=== PATIENT | female | born 1970 | race Caucasian/White ===

== ENCOUNTER 2016-05-15 12:35 | Emergency (ER) | payer OTHER ==
[~2016-05-15] VITALS: Ht 167.6 cm; Wt 70.4 kg
[2016-05-15] MEDS ORDERED: SODIUM CHLORIDE 0.9% 1,000 ML IV ONE (13:25)
[2016-05-15] MEDS ORDERED: ONDANSETRON 2MG/ML, 2ML IVPush ONE (13:30)
[2016-05-15] MEDS ORDERED: SODIUM CHLORIDE FLUSH 10ML SYR IVF ONE (13:30)
[2016-05-15] MEDS ORDERED: SODIUM CHLORIDE 0.9% 1,000ML IVBOLUS ONE ×2 (13:30→15:00)
[2016-05-15] MEDS ORDERED: KETOROLAC 30 MG/1 ML IVPush ONE (13:30)
[2016-05-15] MEDS ORDERED: ONDANSETRON 2MG/ML, 2ML ONE (13:54)
[2016-05-15] MEDS ORDERED: KETOROLAC 30 MG/1 ML ONE (13:54)
[2016-05-15 14:00] LABS: HEMOGLOBIN 15.3 g/dL (11.7-16.4)
[2016-05-15] MEDS ORDERED: GABA300T3 PO (14:08)
[2016-05-15] MEDS ORDERED: CITA40TA12 PO (14:08)
[2016-05-15] MEDS ORDERED: LEVO175T2 PO (14:08)
[2016-05-15] MEDS ORDERED: ALPR-475 PO (14:08)
[2016-05-15] MEDS ORDERED: OXYC-302 PO (14:08)
[2016-05-15 14:13] LABS: ASPARTATE AMINO TRANSFERASE 28 U/L (15-37); BLOOD UREA NITROGEN 14 mg/dL (7-18)
[2016-05-15 14:18] LABS: IS PT STATUS REG ER OR PRE ER? YES
[2016-05-15 15:40] VITALS: BP 142/89
== END 2016-05-15 15:42 | disposition home or self-care (01) ==
LOC: ED 13:15
DX: J01.00 Acute maxillary sinusitis, unspecified (principal); J01.10 Acute frontal sinusitis, unspecified; R07.89 Other chest pain
CPT/HCPCS: 36415; 70450; 80053; 83605; 84484; 85025; 93005; 96361; 96374; 96375; 99285; J1885; J2405; J7030

== ENCOUNTER → 2016-06-10 | Outpatient (CLI) | payer OTHER ==
[~2016-06-10] MED LIST: ALPR-475 PO; CITA40TA12 PO; FENTANYL PF 100 MCG/2ML ONE; FLUMAZENIL 0.1 MG/1 ML, 5ML ONE; GABA300T3 PO; LEVO175T2 PO; MIDAZOLAM 1 MG/ML, 5ML ONE; NALOXONE 1 MG/ML, 2ML ONE; OXYC-302 PO
== END | disposition home or self-care (01) ==
LOC: RAD 10:54
PROVIDERS: ATTEND Internal Medicine Hematology & Oncology
DX: M25.512 Pain in left shoulder (principal)
CPT/HCPCS: 73221; J2250; J3010; 99156; J2310

== ENCOUNTER → 2016-12-19 | Outpatient (CLI) | payer OTHER ==
[~2016-12-19] MED LIST changes: -FENTANYL PF 100 MCG/2ML ONE; -FLUMAZENIL 0.1 MG/1 ML, 5ML ONE; -MIDAZOLAM 1 MG/ML, 5ML ONE; -NALOXONE 1 MG/ML, 2ML ONE
== END | disposition home or self-care (01) ==
LOC: CFH 12:18
PROVIDERS: ATTEND Obstetrics & Gynecology
DX: Z12.31 Encounter for screening mammogram for malignant neoplasm of breast (principal)
CPT/HCPCS: G0202

== ENCOUNTER → 2017-08-05 | Outpatient (CLI) | payer OTHER ==
[2017-08-05 13:23] LABS: FREE T4 (FREE THYROXINE) 0.83 ng/dL (0.76-1.46); THYROID STIMULATING HORMONE 2.97 mIU/L (0.358-3.740)
== END | disposition home or self-care (01) ==
LOC: LAB 12:39
PROVIDERS: ATTEND Family Medicine
DX: E89.0 Postprocedural hypothyroidism (principal); I10 Essential (primary) hypertension; E03.9 Hypothyroidism, unspecified
CPT/HCPCS: 36415; 84439; 84443; 84481

== ENCOUNTER → 2017-10-17 | Outpatient (CLI) | payer OTHER ==
[~2017-10-17] MED LIST changes: +FENTANYL PF 100 MCG/2ML ONE; +FLUMAZENIL 0.1 MG/1 ML, 5ML ONE; +LEVO200T5 PO; +LISI-167 PO; +MIDAZOLAM 1 MG/ML, 5ML ONE; +NALOXONE 1 MG/ML, 2ML ONE; +OXYC-306 PO
== END | disposition home or self-care (01) ==
LOC: RAD 14:06
PROVIDERS: ATTEND Neurological Surgery
DX: M43.22 Fusion of spine, cervical region (principal); M25.78 Osteophyte, vertebrae
CPT/HCPCS: 72050; 72110; 72141; 72148; 99156; 99157; J2250; J3010; J2310

== ENCOUNTER → 2018-01-02 | Outpatient (CLI) | payer OTHER ==
[~2018-01-02] MED LIST changes: -FENTANYL PF 100 MCG/2ML ONE; -FLUMAZENIL 0.1 MG/1 ML, 5ML ONE; -MIDAZOLAM 1 MG/ML, 5ML ONE; -NALOXONE 1 MG/ML, 2ML ONE
[2018-01-02 11:21] LABS: BASOPHILS # (AUTO) 0.02 x10^3/uL (0-0.1); BASOPHILS % (AUTO) 0 % (0-1); EOSINOPHILS # (AUTO) 0.03 x10^3/uL (0-0.4); EOSINOPHILS % (AUTO) 1 % (1-7); LYMPHOCYTES % (AUTO) 34 % (22-44); MD NO; MEAN CORPUSCULAR HEMOGLOBIN 34.2 pg (27.0-34.8); MEAN CORPUSCULAR HGB CONC 33.5 g/dL (32.4-35.8); MEAN CORPUSCULAR VOLUME 102.2 fL (80-100); MEAN PLATELET VOLUME 8.6 fL (7.4-10.4); MONOCYTES # (AUTO) 0.66 x10^3/uL (0.2-0.8); MONOCYTES % (AUTO) 10 % (2-9); NEUTROPHILS # (AUTO) 3.53 x10^3/uL (1.8-6.8); NEUTROPHILS % (AUTO) 55 % (42-75); PLATELET COUNT 260 x10^3/uL (130-400); RED BLOOD COUNT 4.23 x10^6/uL (3.82-5.3); RED CELL DISTRIBUTION WIDTH 13.7 % (9.6-15.2)
[2018-01-02 11:33] LABS: ALBUMIN 4.5 g/dL (3.4-5.0); ANION GAP 6 mmol/L (5-15); CALCIUM 8.7 mg/dL (8.5-10.1); CHLORIDE 105 mmol/L (98-107)
[2018-01-02 11:37] LABS: ALANINE AMINOTRANSFERASE 26 U/L (12-78); ALKALINE PHOSPHATASE 94 U/L (45-117); BILIRUBIN,TOTAL 0.5 mg/dL (0.2-1.0); CREATININE 0.94 mg/dL (0.55-1.02); TOTAL PROTEIN 8.4 g/dL (6.4-8.2)
== END | disposition home or self-care (01) ==
LOC: LAB 11:07
PROVIDERS: ATTEND Nurse Practitioner Family
DX: I10 Essential (primary) hypertension (principal); M32.10 Systemic lupus erythematosus, organ or system involvement unspecified; M79.89 Other specified soft tissue disorders; R20.2 Paresthesia of skin
CPT/HCPCS: 36415; 80053; 85025

== ENCOUNTER 2018-02-06 06:11 | Day surgery (SDC) | payer OTHER ==
[2018-02-05 14:30] LABS: BASOPHILS # (AUTO) 0.03 x10^3/uL (0-0.1); BASOPHILS % (AUTO) 0 % (0-1); EOSINOPHILS # (AUTO) 0.06 x10^3/uL (0-0.4); EOSINOPHILS % (AUTO) 1 % (1-7); LYMPHOCYTES # (AUTO) 2.32 x10^3/uL (1-3.4); LYMPHOCYTES % (AUTO) 24 % (22-44); MD NO; MEAN CORPUSCULAR HEMOGLOBIN 35.2 pg (27.0-34.8); MEAN CORPUSCULAR HGB CONC 34.6 g/dL (32.4-35.8); MEAN CORPUSCULAR VOLUME 101.8 fL (80-100); MEAN PLATELET VOLUME 8.9 fL (7.4-10.4); MONOCYTES # (AUTO) 0.64 x10^3/uL (0.2-0.8); MONOCYTES % (AUTO) 7 % (2-9); NEUTROPHILS # (AUTO) 6.81 x10^3/uL (1.8-6.8); NEUTROPHILS % (AUTO) 69 % (42-75); PLATELET COUNT 220 x10^3/uL (130-400); RED BLOOD COUNT 3.79 x10^6/uL (3.82-5.3); RED CELL DISTRIBUTION WIDTH 12.7 % (9.6-15.2)
[2018-02-05 14:32] LABS: MICROSCOPIC NOT IND
[2018-02-05 14:38] LABS: CULTURE INDICATED? NO
[2018-02-05 14:43] LABS: ALANINE AMINOTRANSFERASE 25 U/L (12-78); ALBUMIN 4.4 g/dL (3.4-5.0); ANION GAP 8 mmol/L (5-15); CALCIUM 8.8 mg/dL (8.5-10.1); CHLORIDE 108 mmol/L (98-107); CREATININE 1.01 mg/dL (0.55-1.02)
[2018-02-05 14:45] LABS: ALKALINE PHOSPHATASE 88 U/L (45-117); BILIRUBIN,TOTAL 0.2 mg/dL (0.2-1.0); TOTAL PROTEIN 8.1 g/dL (6.4-8.2)
[~2018-02-06] VITALS: Ht 167.6 cm; Wt 68.8 kg
[~2018-02-06 06:11] MED LIST changes: +PREN1TAB60 PO
[2018-02-06] MEDS ORDERED: LACTATED RINGERS 1,000 ML IV SCH (06:32)
[2018-02-06 06:34] VITALS: BP 119/80
[2018-02-06] MEDS ORDERED: BUPIVACAINE 0.25% ONE (07:17)
[2018-02-06] MEDS ORDERED: EPINEPHRINE 1 MG/ML, 1ML ONE (07:18)
[2018-02-06] MEDS ORDERED: FENTANYL PF 100 MCG/2ML ONE (07:50)
[2018-02-06] MEDS ORDERED: MIDAZOLAM 1 MG/ML, 2ML ONE (07:50)
[2018-02-06] MEDS ORDERED: FENTANYL PF 100 MCG/2ML IV PRN (08:00)
[2018-02-06] MEDS ORDERED: DIPHENHYDRAMINE 50 MG/ML, 1ML IVPush PRN (08:00)
[2018-02-06] MEDS ORDERED: LABETALOL 5MG/ML, 20ML IV PRN (08:00)
[2018-02-06] MEDS ORDERED: HALOPERIDOL 5 MG/ML IV PRN (08:00)
[2018-02-06] MEDS ORDERED: HYDROcodone/APAP 7.5-325MG/15ML UDC PO PRN (08:00)
[2018-02-06] MEDS ORDERED: hydrALAzine 20 MG/ML, 1ML IV PRN (08:00)
[2018-02-06] MEDS ORDERED: HYDROmorphone 2 MG/ML, 1ML IVPush PRN (08:00)
[2018-02-06] MEDS ORDERED: MORPHINE SULFATE 4 MG/ML, 1ML ONE ×2 (09:17→09:32)
[2018-02-06] MEDS: MORPHINE SULFATE 4 MG/ML, 1ML IVPush PRN ×3 (09:20→09:35)
[2018-02-06] MEDS: DIAZEPAM 5 MG/ML, 2ML IVPush PRN ×3 (09:30→09:40)
[2018-02-06] MEDS ORDERED: PROMETHAZINE 25 MG/ML, 1ML ONE (09:37)
[2018-02-06] MEDS: PROMETHAZINE 25 MG/ML, 1ML IV PRN ×2 (09:40→09:50)
[2018-02-06] MEDS ORDERED: OXYcodone 5 MG/5 ML ORAL.SOL UDC PO PRN (10:00)
[2018-02-06] MEDS ORDERED: KETOROLAC 30 MG/1 ML ONE (11:17)
[2018-02-06] MEDS ORDERED: ONDANSETRON 2MG/ML, 2ML ONE (11:17)
[2018-02-06] MEDS ORDERED: PROPOFOL 10 MG/ML, 20ML ONE (11:17)
[2018-02-06] MEDS ORDERED: DEXAMETHASONE 4 MG/ML, 1ML ONE (11:17)
== END 2018-02-06 11:00 | disposition home or self-care (01) ==
LOC: OUT 06:11
PROVIDERS: ATTEND Obstetrics & Gynecology
DX: N92.0 Excessive and frequent menstruation with regular cycle (principal); I10 Essential (primary) hypertension; F41.9 Anxiety disorder, unspecified; G62.9 Polyneuropathy, unspecified; Z88.5 Allergy status to narcotic agent; Z88.8 Allergy status to other drugs, medicaments and biological substances; G89.29 Other chronic pain; Z90.49 Acquired absence of other specified parts of digestive tract; E89.0 Postprocedural hypothyroidism; Z98.890 Other specified postprocedural states; Z79.899 Other long term (current) drug therapy; Z83.3 Family history of diabetes mellitus; Z82.49 Family history of ischemic heart disease and other diseases of the circulatory system; Z83.49 Family history of other endocrine, nutritional and metabolic diseases; I69.351 Hemiplegia and hemiparesis following cerebral infarction affecting right dominant side; I69.354 Hemiplegia and hemiparesis following cerebral infarction affecting left non-dominant side
CPT/HCPCS: 36415; 58563; 80053; 81003; 84702; 85025; J1100; J1885; J2250; J2405; J2550; J2704; J3010; J3360; J3490; J7120; J0171

== ENCOUNTER → 2018-03-18 | Outpatient (CLI) | payer OTHER ==
[2018-03-19 08:53] LABS: MEAN CORPUSCULAR HEMOGLOBIN 34.4 pg (27.0-34.8); MEAN CORPUSCULAR HGB CONC 33.7 g/dL (32.4-35.8); MEAN CORPUSCULAR VOLUME 101.8 fL (80-100); MEAN PLATELET VOLUME 8.6 fL (7.4-10.4); PLATELET COUNT 241 x10^3/uL (130-400); RED BLOOD COUNT 4.28 x10^6/uL (3.82-5.3); RED CELL DISTRIBUTION WIDTH 11.8 % (9.6-15.2)
== END | disposition home or self-care (01) ==
LOC: LAB 07:05
PROVIDERS: ATTEND Obstetrics & Gynecology
DX: Z13.0 Encounter for screening for diseases of the blood and blood-forming organs and certain disorders involving the immune mechanism (principal); Z13.220 Encounter for screening for lipoid disorders; Z13.29 Encounter for screening for other suspected endocrine disorder; Z13.9 Encounter for screening, unspecified; N95.1 Menopausal and female climacteric states
CPT/HCPCS: 36415; 82670; 83001; 84443; 85027

== ENCOUNTER → 2018-06-12 | Outpatient (CLI) | payer OTHER ==
[2018-06-12 10:13] LABS: ALANINE AMINOTRANSFERASE 24 U/L (12-78); ANION GAP 7 mmol/L (5-15); CALCIUM 8.8 mg/dL (8.5-10.1); CHLORIDE 105 mmol/L (98-107); CREATININE 0.87 mg/dL (0.55-1.02)
[2018-06-12 10:24] LABS: ALKALINE PHOSPHATASE 105 U/L (45-117); BILIRUBIN,TOTAL 0.2 mg/dL (0.2-1.0); FREE T4 (FREE THYROXINE) 1.29 ng/dL (0.76-1.46); THYROID STIMULATING HORMONE 0.329 mIU/L (0.358-3.740); TOTAL PROTEIN 7.9 g/dL (6.4-8.2)
== END | disposition home or self-care (01) ==
LOC: LAB 09:48
PROVIDERS: ATTEND Internal Medicine Endocrinology, Diabetes & Metabolism
DX: R53.83 Other fatigue (principal); E89.0 Postprocedural hypothyroidism
CPT/HCPCS: 36415; 80053; 82306; 83970; 84439; 84443; 84481

== ENCOUNTER 2018-08-04 13:49 | Inpatient (IN) | payer OTHER ==
[~2018-08-04] VITALS: Ht 167.6 cm; Wt 72.5 kg
[2018-08-04] MEDS ORDERED: SODIUM CHLORIDE FLUSH 10ML SYR IVF ONE (14:30)
[2018-08-04] MEDS ORDERED: DIAZEPAM 5 MG/ML, 2ML IV ONE (14:30)
--- NOTE | 2018-08-04 14:50 | NUR ---
PT C/O LOW BACK PAIN FOR FOUR DAYS AFTER LIFTING A PT. PT HAS HAD PREVIOUS BACK SURGERY BUT PAIN IS IN DIFFERENT LOCATION THAT SHE USUALLY EXPERIENCES IT.
--- NOTE | 2018-08-04 15:32 | NUR ---
MEDICATED PER ORDERS. PT CONCERNED NO IMAGING HAS BEEN ORDERED. MD AT BEDSIDE EXAMINING PT
[2018-08-04] MEDS ORDERED: HYDROmorphone 2 MG/ML, 1ML ONE (15:35)
[2018-08-04] MEDS ORDERED: KETOROLAC 30 MG/1 ML ONE (15:36)
[2018-08-04] MEDS ORDERED: DIAZEPAM 5 MG/ML, 2ML IVPush ONE (16:00)
[2018-08-04] MEDS ORDERED: KETOROLAC 30 MG/1 ML IVPush ONE (16:00)
[2018-08-04] MEDS ORDERED: HYDROmorphone 2 MG/ML, 1ML IVPush ONE (16:00)
[2018-08-04] MEDS ORDERED: DIPHENHYDRAMINE 50 MG/ML, 1ML ONE (16:23)
[2018-08-04] MEDS ORDERED: DIPHENHYDRAMINE 50 MG/ML, 1ML IVPush ONE (16:30)
--- NOTE | 2018-08-04 16:33 | NUR ---
PAIN IMPROVING WITH MEDICATIONS ORDERED,09/09. REDNESS SKIN AT IV SITE. MEDICATED WITH BENADRYL PER ORDERS
[2018-08-04] MEDS ORDERED: MORPHINE SULFATE 4 MG/ML, 1ML ONE ×2 (17:03→17:23)
[2018-08-04] MEDS: MORPHINE SULFATE 4 MG/ML, 1ML IVPush PRN ×2 (17:05→17:27)
[2018-08-04 17:56] LABS: BASOPHILS # (AUTO) 0.02 x10^3/uL (0-0.1); BASOPHILS % (AUTO) 0 % (0-1); EOSINOPHILS # (AUTO) 0.03 x10^3/uL (0-0.4); EOSINOPHILS % (AUTO) 1 % (1-7); LYMPHOCYTES # (AUTO) 1.78 x10^3/uL (1-3.4); LYMPHOCYTES % (AUTO) 27 % (22-44); MD NO; MEAN CORPUSCULAR HEMOGLOBIN 33.9 pg (27.0-34.8); MEAN CORPUSCULAR HGB CONC 33.3 g/dL (32.4-35.8); MEAN CORPUSCULAR VOLUME 101.7 fL (80-100); MEAN PLATELET VOLUME 8.9 fL (7.4-10.4); MONOCYTES # (AUTO) 0.58 x10^3/uL (0.2-0.8); MONOCYTES % (AUTO) 9 % (2-9); NEUTROPHILS # (AUTO) 4.11 x10^3/uL (1.8-6.8); NEUTROPHILS % (AUTO) 63 % (42-75); PLATELET COUNT 199 x10^3/uL (130-400); RED BLOOD COUNT 4.18 x10^6/uL (3.82-5.3); RED CELL DISTRIBUTION WIDTH 12.1 % (9.6-15.2)
[2018-08-04 18:05] LABS: ALBUMIN 4.1 g/dL (3.4-5.0); ANION GAP 8 mmol/L (5-15); CALCIUM 9.4 mg/dL (8.5-10.1); CHLORIDE 109 mmol/L (98-107); CREATININE 0.97 mg/dL (0.55-1.02)
--- NOTE | 2018-08-04 18:10 | NUR ---
PT TO BE ADMITTED FOR CONTINUED BACK PAIN DESPITE MEDICATION
[2018-08-04] MEDS ORDERED: [UNRECOGNIZED DRUG - OTHER] (18:34)
[2018-08-04] MEDS ORDERED: PROG100C2 PO (18:34)
[2018-08-04] MEDS ORDERED: MULT-658 PO (18:34)
[2018-08-04] MEDS ORDERED: OXYC-302 PO (18:34)
[2018-08-04] MEDS ORDERED: TIZA4CAP2 PO (18:34)
[2018-08-04] MEDS ORDERED: D3 (18:37)
--- NOTE | 2018-08-04 18:51 | NUR ---
HOSPITALIST AT BEDSIDE. REPORT TO KIMBERLY TAM
[2018-08-04] MEDS ORDERED: hydrALAzine 20 MG/ML, 1ML IVPush PRN (19:30)
[2018-08-04] MEDS ORDERED: ACETAMINOPHEN 325 MG TABLET PO PRN (19:30)
[2018-08-04 20:02] VITALS: BP 107/71
[2018-08-04 20:20] VITALS: BP 107/71
[2018-08-04] MEDS: morphine SULFATE 10 MG/ML, 1ML IVPush PRN ×2 (20:34→23:23)
[2018-08-04] MEDS: KETOROLAC 30 MG/1 ML IV PRN (21:59)
[2018-08-04] MEDS: DIAZEPAM 5 MG/ML, 2ML IV PRN (22:49)
[2018-08-05 02:30] VITALS: BP 102/66
[2018-08-05] MEDS: morphine SULFATE 10 MG/ML, 1ML IVPush PRN ×7 (02:57→23:24)
[2018-08-05] MEDS: KETOROLAC 30 MG/1 ML IV PRN ×2 (03:58→09:56)
[2018-08-05 05:33] LABS: EOSINOPHILS # (AUTO) 0.05 x10^3/uL (0-0.4); MD NO; MONOCYTES % (AUTO) 7 % (2-9); RED BLOOD COUNT 3.75 x10^6/uL (3.82-5.3)
[2018-08-05 05:40] LABS: ANION GAP 7 mmol/L (5-15); CALCIUM 8.7 mg/dL (8.5-10.1); CHLORIDE 109 mmol/L (98-107)
[2018-08-05 06:09] LABS: BASOPHILS # (AUTO) 0.03 x10^3/uL (0-0.1); BASOPHILS % (AUTO) 1 % (0-1); EOSINOPHILS % (AUTO) 1 % (1-7); LYMPHOCYTES # (AUTO) 2.09 x10^3/uL (1-3.4); LYMPHOCYTES % (AUTO) 39 % (22-44); MEAN CORPUSCULAR HEMOGLOBIN 33.7 pg (27.0-34.8); MEAN CORPUSCULAR HGB CONC 33.5 g/dL (32.4-35.8); MEAN CORPUSCULAR VOLUME 100.7 fL (80-100); MONOCYTES # (AUTO) 0.39 x10^3/uL (0.2-0.8); NEUTROPHILS # (AUTO) 2.75 x10^3/uL (1.8-6.8); NEUTROPHILS % (AUTO) 52 % (42-75); PLATELET COUNT 170 x10^3/uL (130-400)
[2018-08-05] MEDS: DIAZEPAM 5 MG/ML, 2ML IV PRN (06:35)
[2018-08-05 07:48] VITALS: BP 95/60
[2018-08-05] MEDS: LEVOTHYROXINE 200 MCG TABLET PO SCH (09:00)
[2018-08-05] MEDS: PROGESTERONE 100 MG CAPSULE PO SCH (09:00)
[2018-08-05] MEDS: LISINOPRIL 10 MG TABLET PO SCH (09:00)
[2018-08-05] MEDS: MULTIVITAMIN 1 TABLET PO SCH (09:00)
[2018-08-05] MEDS ORDERED: MIDAZOLAM 1 MG/ML, 5ML ONE (10:34)
[2018-08-05] MEDS ORDERED: FLUMAZENIL 0.1 MG/1 ML, 5ML ONE (10:34)
[2018-08-05] MEDS ORDERED: FENTANYL PF 100 MCG/2ML ONE (10:34)
[2018-08-05] MEDS ORDERED: NALOXONE 1 MG/ML, 2ML ONE (10:34)
[2018-08-05 11:39] VITALS: BP 100/64
[2018-08-05 14:45] VITALS: BP 112/68
[2018-08-05] MEDS: DIAZEPAM 5 MG TABLET PO PRN ×2 (14:54→21:39)
[2018-08-05] MEDS: METHOCARBAMOL 500 MG TABLET PO SCH ×2 (16:39→21:38)
[2018-08-05] MEDS: KETOROLAC 30 MG/1 ML IV SCH ×2 (16:39→23:24)
[2018-08-05] MEDS ORDERED: KETOROLAC 30 MG/1 ML IV SCH (19:30)
[2018-08-05 20:00] VITALS: BP 110/68
[2018-08-05] MEDS ORDERED: DIPHENHYDRAMINE 50 MG/ML, 1ML IVPush ONE (21:00)
[2018-08-06 04:18] VITALS: BP 106/66
[2018-08-06] MEDS: morphine SULFATE 10 MG/ML, 1ML IVPush PRN ×6 (04:36→23:26)
[2018-08-06] MEDS: DIAZEPAM 5 MG TABLET PO PRN ×3 (05:31→22:04)
[2018-08-06] MEDS: KETOROLAC 30 MG/1 ML IV SCH ×4 (05:31→22:03)
[2018-08-06] MEDS: METHOCARBAMOL 500 MG TABLET PO SCH ×4 (05:32→22:03)
[2018-08-06] MEDS: LEVOTHYROXINE 200 MCG TABLET PO SCH (06:00)
[2018-08-06 07:07] VITALS: BP 112/65
[2018-08-06] MEDS: MULTIVITAMIN 1 TABLET PO SCH (08:19)
[2018-08-06] MEDS: PROGESTERONE 100 MG CAPSULE PO SCH ×2 (08:19→22:03)
[2018-08-06] MEDS: LISINOPRIL 10 MG TABLET PO SCH (08:20)
[2018-08-06 14:03] VITALS: BP 106/66
[2018-08-06 18:44] VITALS: BP 118/76
[2018-08-06] MEDS: DIPHENHYDRAMINE 50 MG/ML, 1ML IVPush ONE ×2 (22:03→23:26)
[2018-08-07 03:20] VITALS: BP 108/72
[2018-08-07] MEDS: morphine SULFATE 10 MG/ML, 1ML IVPush PRN ×6 (03:46→21:00)
[2018-08-07] MEDS: KETOROLAC 30 MG/1 ML IV SCH ×4 (06:28→23:06)
[2018-08-07] MEDS: METHOCARBAMOL 500 MG TABLET PO SCH ×3 (06:28→17:27)
[2018-08-07] MEDS: DIAZEPAM 5 MG TABLET PO PRN ×3 (06:29→17:27)
[2018-08-07 07:10] VITALS: BP 101/63
[2018-08-07] MEDS: MULTIVITAMIN 1 TABLET PO SCH (08:46)
[2018-08-07] MEDS: LISINOPRIL 10 MG TABLET PO SCH (08:46)
[2018-08-07] MEDS: LEVOTHYROXINE 200 MCG TABLET PO SCH (08:46)
[2018-08-07] MEDS: PROGESTERONE 100 MG CAPSULE PO SCH (08:46)
[2018-08-07 14:41] VITALS: BP 111/67
[2018-08-07] MEDS ORDERED: POLYETHYLENE GLYCOL 17 GM PACKET PO PRN (18:00)
[2018-08-07 19:16] VITALS: BP 107/64
[2018-08-07] MEDS ORDERED: DIPHENHYDRAMINE 50 MG/ML, 1ML IVPush ONE (21:00)
[2018-08-07] MEDS: SENNA/DOCUSATE TABLET PO SCH (21:00)
[2018-08-07] MEDS: METHOCARBAMOL 750 MG TABLET PO SCH (21:00)
[2018-08-07] MEDS: LIDODERM 5% PATCH TD SCH (21:01)
[2018-08-08 00:23] VITALS: BP 103/62
[2018-08-08] MEDS: DIAZEPAM 5 MG TABLET PO PRN ×5 (00:31→23:28)
[2018-08-08] MEDS: morphine SULFATE 10 MG/ML, 1ML IVPush PRN ×8 (00:31→22:12)
[2018-08-08] MEDS: METHOCARBAMOL 750 MG TABLET PO SCH ×4 (04:32→23:28)
[2018-08-08] MEDS: KETOROLAC 30 MG/1 ML IV SCH ×4 (04:32→22:12)
[2018-08-08 07:46] VITALS: BP 104/67
[2018-08-08] MEDS: PROGESTERONE 100 MG CAPSULE PO SCH (09:26)
[2018-08-08] MEDS: SENNA/DOCUSATE TABLET PO SCH (09:26)
[2018-08-08] MEDS: LEVOTHYROXINE 200 MCG TABLET PO SCH (09:27)
[2018-08-08] MEDS: MULTIVITAMIN 1 TABLET PO SCH (09:27)
[2018-08-08] MEDS: LISINOPRIL 10 MG TABLET PO SCH (09:27)
[2018-08-08] MEDS: LORazepam 2 MG/ML, 1ML IVPush PRN ×2 (11:07→19:39)
[2018-08-08] MEDS: DIAZEPAM 5 MG/ML, 2ML IVPush PRN ×4 (11:45→23:28)
[2018-08-08 13:40] VITALS: BP 108/69
[2018-08-08 18:55] VITALS: BP 104/62
[2018-08-08] MEDS: LIDODERM 5% PATCH TD SCH (20:52)
[2018-08-09 00:39] VITALS: BP 111/73
[2018-08-09] MEDS: morphine SULFATE 10 MG/ML, 1ML IVPush PRN ×4 (01:03→11:59)
[2018-08-09] MEDS: LORazepam 2 MG/ML, 1ML IVPush PRN ×2 (03:27→12:13)
[2018-08-09] MEDS: DIAZEPAM 5 MG/ML, 2ML IVPush PRN ×3 (03:27→12:14)
[2018-08-09] MEDS: KETOROLAC 30 MG/1 ML IV SCH ×2 (04:23→10:16)
[2018-08-09] MEDS: DIAZEPAM 5 MG TABLET PO PRN ×2 (05:40→11:25)
[2018-08-09] MEDS: METHOCARBAMOL 750 MG TABLET PO SCH ×2 (05:40→11:14)
[2018-08-09] MEDS: LEVOTHYROXINE 200 MCG TABLET PO SCH (05:40)
[2018-08-09 07:20] VITALS: BP 92/62
[2018-08-09] MEDS: PROGESTERONE 100 MG CAPSULE PO SCH (08:02)
[2018-08-09] MEDS: LISINOPRIL 10 MG TABLET PO SCH (08:03)
[2018-08-09] MEDS: SENNA/DOCUSATE TABLET PO SCH (08:03)
[2018-08-09] MEDS: MULTIVITAMIN 1 TABLET PO SCH (08:03)
[2018-08-09] MEDS ORDERED: DIAZ5TAB4 PO (13:59)
[2018-08-09] MEDS ORDERED: D3 (13:59)
[2018-08-09] MEDS ORDERED: KETO10TA PO (13:59)
== END 2018-08-09 14:41 | disposition home or self-care (01) | DRG 552 ==
LOC: ED 17:56 → EDIP 18:07 → 3NE 19:30
PROVIDERS: ADMIT Internal Medicine; ATTEND Internal Medicine
DX: M46.1 Sacroiliitis, not elsewhere classified (principal); M21.371 Foot drop, right foot; G89.29 Other chronic pain; S39.012A Strain of muscle, fascia and tendon of lower back, initial encounter; E89.0 Postprocedural hypothyroidism; G62.9 Polyneuropathy, unspecified; K59.00 Constipation, unspecified; M32.9 Systemic lupus erythematosus, unspecified; I10 Essential (primary) hypertension; Z82.41 Family history of sudden cardiac death; Z98.1 Arthrodesis status; Z86.73 Personal history of transient ischemic attack (TIA), and cerebral infarction without residual deficits; Z90.49 Acquired absence of other specified parts of digestive tract; Z83.3 Family history of diabetes mellitus; Y92.89 Other specified places as the place of occurrence of the external cause; Y99.8 Other external cause status; X50.0XXA Overexertion from strenuous movement or load, initial encounter; Y93.F2 Activity, caregiving, lifting; Z79.899 Other long term (current) drug therapy; Z88.8 Allergy status to other drugs, medicaments and biological substances
CPT/HCPCS: 36415; 72148; 80048; 82040; 85025; 96374; 96375; 96376; 99156; 99157; 99285; G0378; J1170; J1885; J2250; J3010; J3360; J1200; J2060; J2270; J2310

== ENCOUNTER 2018-08-11 17:35 | Inpatient (IN) | payer OTHER ==
[~2018-08-11] VITALS: Ht 167.6 cm; Wt 71.7 kg
[~2018-08-11 17:35] MED LIST changes: +D3; +DIAZ5TAB4 PO; +KETO10TA PO; +MULT-658 PO; +PROG100C2 PO; +TIZA4CAP2 PO; +[UNRECOGNIZED DRUG - OTHER]
[2018-08-11] MEDS ORDERED: OXYcodone 5 MG/5 ML ORAL.SOL UDC PO STA (18:35)
[2018-08-11] MEDS ORDERED: DIAZEPAM 5 MG TABLET ONE (18:45)
[2018-08-11] MEDS ORDERED: OXYcodone IR 5MG TABLET ONE (18:45)
--- NOTE | 2018-08-11 18:53 | NUR ---
REPORT TO AMY TAM.
--- NOTE | 2018-08-11 18:55 | NUR ---
STTEMPTED TO MEDICATE PT PER MAR. PT REFUSING PO MEDS. PT STATING THAT ONLY IV MEDS WORK FOR HER. DISCUSSED WITH ER MD WHOM STATES PT WILL NOT RECEIVE IV PAIN MEDICATIONS IN THE ER. POC DISCUSSED WITH PT. PT WISHING TO BE ADMITTED. MD INFORMED. PT TO BE ADMITTED.
[2018-08-11] MEDS ORDERED: DIAZEPAM 5 MG/ML, 2ML IV ONE (19:00)
[2018-08-11] MEDS ORDERED: DIAZEPAM 5 MG TABLET PO ONE (19:00)
[2018-08-11] MEDS ORDERED: MORPHINE SULFATE 4 MG/ML, 1ML IVPush ONE (19:00)
--- NOTE | 2018-08-11 19:59 | NUR ---
ATTEMPTED TO CALL REPORT X2, UNABLE TO REACH RN FOR REPORT.
[2018-08-11] MEDS ORDERED: ACETAMINOPHEN 325 MG TABLET PO PRN (20:30)
[2018-08-11] MEDS ORDERED: BISACODYL 10 MG SUPP PR PRN (20:30)
[2018-08-11] MEDS ORDERED: ONDANSETRON 2MG/ML, 2ML IVPush PRN (20:30)
[2018-08-11 20:42] VITALS: BP 139/96
[2018-08-11] MEDS ORDERED: methylPREDNISolone 4mg DOSE PACK PO ONE (21:00)
[2018-08-11] MEDS: morphine SULFATE 10 MG/ML, 1ML IVPush PRN (21:05)
[2018-08-11] MEDS: SODIUM CHLORIDE FLUSH 10ML SYR IVF SCH (21:06)
[2018-08-11] MEDS ORDERED: morphine SULFATE 10 MG/ML, 1ML IVPush ONE (21:30)
[2018-08-11] MEDS ORDERED: DIAZEPAM 5 MG/ML, 2ML IVPush ONE (21:30)
[2018-08-11] MEDS ORDERED: DIPHENHYDRAMINE 50 MG/ML, 1ML IVPush PRN (23:00)
[2018-08-12] MEDS: morphine SULFATE 10 MG/ML, 1ML IVPush PRN ×7 (00:38→21:27)
[2018-08-12 01:27] VITALS: BP 97/60
[2018-08-12] MEDS: LEVOTHYROXINE 200 MCG TABLET PO SCH (05:21)
[2018-08-12] MEDS: DIAZEPAM 5 MG/ML, 2ML IVPush PRN ×3 (05:22→23:24)
[2018-08-12] MEDS: PROGESTERONE 100 MG CAPSULE PO SCH (08:01)
[2018-08-12] MEDS: CHOLECALCIFEROL 1,000 UNIT TABLET PO SCH (08:02)
[2018-08-12] MEDS: MULTIVITAMIN 1 TABLET PO SCH (08:02)
[2018-08-12] MEDS: SENNA/DOCUSATE TABLET PO SCH (08:02)
[2018-08-12 08:03] VITALS: BP 108/70
[2018-08-12] MEDS: SODIUM CHLORIDE FLUSH 10ML SYR IVF SCH ×2 (08:03→21:27)
[2018-08-12] MEDS ORDERED: LISINOPRIL 10 MG TABLET PO SCH (09:00)
[2018-08-12] MEDS ORDERED: DIPHENHYDRAMINE 50 MG/ML, 1ML IVPush ONE (09:30)
[2018-08-12 15:14] VITALS: BP 132/74
[2018-08-12] MEDS: KETOROLAC 30 MG/1 ML IVPush PRN ×2 (16:33→23:20)
[2018-08-12] MEDS ORDERED: DEXAMETHASONE 4 MG/ML, 5ML IVPush ONE (17:30)
[2018-08-12] MEDS ORDERED: TIZANIDINE 4MG TABLET PO PRN (17:30)
[2018-08-12] MEDS ORDERED: OXYcodone/APAP 7.5/325MG TABLET PO PRN (17:30)
[2018-08-12] MEDS ORDERED: DEXAMETHASONE 10 MG in SODIUM CHLORIDE 0.9% 50 ML IV ONE (18:00)
[2018-08-12 19:05] VITALS: BP 110/73
[2018-08-12] MEDS: DIPHENHYDRAMINE 50 MG/ML, 1ML IVPush PRN (22:33)
[2018-08-12] MEDS: POLYETHYLENE GLYCOL 17 GM PACKET PO PRN (23:20)
[2018-08-13 01:35] VITALS: BP 103/66
[2018-08-13] MEDS: LEVOTHYROXINE 200 MCG TABLET PO SCH (04:46)
[2018-08-13] MEDS: KETOROLAC 30 MG/1 ML IVPush PRN ×3 (06:16→22:29)
[2018-08-13 08:11] VITALS: BP 101/61
[2018-08-13] MEDS ORDERED: ENOXAPARIN 40 MG/0.4 ML SQ SCH (08:30)
[2018-08-13] MEDS: MULTIVITAMIN 1 TABLET PO SCH (09:00)
[2018-08-13] MEDS: LISINOPRIL 10 MG TABLET PO SCH (09:00)
[2018-08-13] MEDS: SODIUM CHLORIDE FLUSH 10ML SYR IVF SCH ×2 (09:00→20:56)
[2018-08-13] MEDS: CHOLECALCIFEROL 1,000 UNIT TABLET PO SCH (09:00)
[2018-08-13] MEDS: SENNA/DOCUSATE TABLET PO SCH (09:00)
[2018-08-13] MEDS: DIAZEPAM 5 MG/ML, 2ML IVPush PRN ×2 (09:12→17:52)
[2018-08-13] MEDS ORDERED: PROPOFOL 10 MG/ML, 20ML ONE (12:15)
[2018-08-13] MEDS ORDERED: ONDANSETRON 2MG/ML, 2ML ONE (12:15)
[2018-08-13] MEDS ORDERED: DEXAMETHASONE 4 MG/ML, 1ML ONE (12:15)
[2018-08-13] MEDS ORDERED: PROMETHAZINE 25 MG/ML, 1ML ONE (13:51)
[2018-08-13] MEDS ORDERED: PROMETHAZINE 25 MG/ML, 1ML IV STA (13:56)
[2018-08-13] MEDS ORDERED: PROCHLORPERAZINE 5 MG/ML, 2ML IV PRN (14:00)
[2018-08-13] MEDS ORDERED: PROMETHAZINE 25 MG/ML, 1ML IV PRN (14:00)
[2018-08-13] MEDS ORDERED: FENTANYL PF 100 MCG/2ML IV PRN (14:00)
[2018-08-13] MEDS ORDERED: DIAZEPAM 5 MG/ML, 2ML IVPush PRN (14:00)
[2018-08-13] MEDS ORDERED: MORPHINE SULFATE 4 MG/ML, 1ML IVPush PRN (14:00)
[2018-08-13 15:10] VITALS: BP 117/69
[2018-08-13] MEDS: PROGESTERONE 100 MG CAPSULE PO SCH (15:40)
[2018-08-13] MEDS: ACETAMINOPHEN 325 MG TABLET PO SCH ×2 (15:40→20:59)
[2018-08-13] MEDS: DIPHENHYDRAMINE 25 MG CAPSULE PO PRN (17:53)
[2018-08-13 19:19] VITALS: BP 87/44
[2018-08-13 20:00] VITALS: BP 95/65
[2018-08-13] MEDS ORDERED: ATORVASTATIN 20 MG TABLET PO SCH (21:00)
[2018-08-13] MEDS: DIPHENHYDRAMINE 50 MG/ML, 1ML IVPush PRN (22:29)
[2018-08-13] MEDS: POLYETHYLENE GLYCOL 17 GM PACKET PO PRN (23:46)
[2018-08-14 01:13] VITALS: BP 115/67
[2018-08-14] MEDS: ACETAMINOPHEN 325 MG TABLET PO SCH ×2 (03:52→09:08)
[2018-08-14] MEDS: DIAZEPAM 5 MG/ML, 2ML IVPush PRN (03:52)
[2018-08-14] MEDS: KETOROLAC 30 MG/1 ML IVPush PRN (05:13)
[2018-08-14] MEDS: DIPHENHYDRAMINE 25 MG CAPSULE PO PRN (05:13)
[2018-08-14] MEDS: LEVOTHYROXINE 200 MCG TABLET PO SCH (05:13)
[2018-08-14] MEDS ORDERED: ASPIRIN 81 MG TABLET EC PO SCH (06:00)
[2018-08-14] MEDS ORDERED: DIAZEPAM 5 MG TABLET PO PRN (07:00)
[2018-08-14 07:15] VITALS: BP 123/73
[2018-08-14] MEDS: PROGESTERONE 100 MG CAPSULE PO SCH (09:00)
[2018-08-14] MEDS: SENNA/DOCUSATE TABLET PO SCH (09:00)
[2018-08-14] MEDS: CHOLECALCIFEROL 1,000 UNIT TABLET PO SCH (09:00)
[2018-08-14] MEDS: LISINOPRIL 10 MG TABLET PO SCH (09:00)
[2018-08-14] MEDS: MULTIVITAMIN 1 TABLET PO SCH (09:00)
[2018-08-14] MEDS: SODIUM CHLORIDE FLUSH 10ML SYR IVF SCH (09:00)
[2018-08-14] MEDS ORDERED: ACET325T14 PO (09:08)
[2018-08-14] MEDS ORDERED: ATOR20TA37 PO (09:08)
[2018-08-14] MEDS ORDERED: SENN-177 PO (09:08)
[2018-08-14] MEDS ORDERED: ASPI81TA45 PO (09:08)
== END 2018-08-14 10:17 | disposition home or self-care (01) | DRG 552 ==
LOC: ED 19:13 → EDIP 19:31 → 3NE 20:35
PROVIDERS: ADMIT Internal Medicine; ATTEND Internal Medicine
DX: M54.9 Dorsalgia, unspecified (principal); G47.00 Insomnia, unspecified; G89.29 Other chronic pain; I10 Essential (primary) hypertension; E66.9 Obesity, unspecified; Z68.25 Body mass index [BMI] 25.0-25.9, adult; Z80.0 Family history of malignant neoplasm of digestive organs; Z82.49 Family history of ischemic heart disease and other diseases of the circulatory system; Z83.3 Family history of diabetes mellitus; Z86.73 Personal history of transient ischemic attack (TIA), and cerebral infarction without residual deficits; Z90.49 Acquired absence of other specified parts of digestive tract; Z88.8 Allergy status to other drugs, medicaments and biological substances
CPT/HCPCS: 72082; 72192; 99285; G0378; J1100; J1650; J1885; J2270; J2405; J2550; J2704; J3360; J7509; J1200; Q0163

== ENCOUNTER → 2018-08-20 | Outpatient (CLI) | payer OTHER ==
[~2018-08-20] MED LIST changes: +ACET325T14 PO; +ASPI81TA45 PO; +ATOR20TA37 PO; +SENN-177 PO
== END | disposition home or self-care (01) ==
LOC: RAD 12:01
PROVIDERS: ATTEND Neurological Surgery
DX: M54.5 Low back pain (principal)
CPT/HCPCS: 72170

== ENCOUNTER → 2018-09-09 | Outpatient (CLI) | payer OTHER ==
[~2018-09-09] MED LIST changes: +FENTANYL PF 100 MCG/2ML ONE; +MIDAZOLAM 1 MG/ML, 5ML ONE
== END | disposition home or self-care (01) ==
LOC: RAD 12:15
PROVIDERS: ATTEND Neurological Surgery
DX: M47.814 Spondylosis without myelopathy or radiculopathy, thoracic region (principal); M51.34 Other intervertebral disc degeneration, thoracic region; M46.1 Sacroiliitis, not elsewhere classified; M50.30 Other cervical disc degeneration, unspecified cervical region
CPT/HCPCS: 72146; 99156; 99157; J2250; J3010

== ENCOUNTER 2018-09-30 13:26 | Inpatient (IN) | payer OTHER ==
[~2018-09-30] VITALS: Ht 167.6 cm; Wt 65.0 kg
[2018-10-07 06:38] VITALS: BP 90/57
== END 2018-10-07 09:18 | disposition home or self-care (01) | DRG 391 ==
LOC: ED 13:58 → EDIP 16:18 → INTOOBSV 16:18 → 3NE 17:15 → OBSVTOIN 10-02 12:05 → DCLOUNGE 10-07 09:14
PROVIDERS: ADMIT Internal Medicine; ATTEND Internal Medicine
DX: A09 Infectious gastroenteritis and colitis, unspecified (principal); K85.90 Acute pancreatitis without necrosis or infection, unspecified; D53.9 Nutritional anemia, unspecified; D75.89 Other specified diseases of blood and blood-forming organs; E78.5 Hyperlipidemia, unspecified; E86.0 Dehydration; E89.0 Postprocedural hypothyroidism; G89.4 Chronic pain syndrome; R62.7 Adult failure to thrive; I10 Essential (primary) hypertension; Z68.23 Body mass index [BMI] 23.0-23.9, adult; Z82.49 Family history of ischemic heart disease and other diseases of the circulatory system; Z83.3 Family history of diabetes mellitus; Z86.73 Personal history of transient ischemic attack (TIA), and cerebral infarction without residual deficits; Z90.49 Acquired absence of other specified parts of digestive tract; Z79.899 Other long term (current) drug therapy; Z88.8 Allergy status to other drugs, medicaments and biological substances
CPT/HCPCS: 36415; 74177; 80053; 81003; 83605; 83690; 84145; 84478; 85025; 87040; 87338; 96374; G0378; J1885; J2405; J2543; J3480; Q0162; C9113; J2270; J7030; J7040

== ENCOUNTER → 2019-02-04 | Outpatient (CLI) | payer OTHER ==
[~2019-02-04] MED LIST changes: -ALPR-475 PO; +ALPR0.5T7 PO; +CIPR500T3 PO; -FENTANYL PF 100 MCG/2ML ONE; +METR500T PO; -MIDAZOLAM 1 MG/ML, 5ML ONE; +PROG100C10 PO; -PROG100C2 PO
[2019-02-04 09:27] LABS: FREE T4 (FREE THYROXINE) 0.6 ng/dL (0.76-1.46)
== END | disposition home or self-care (01) ==
LOC: LAB 08:43
PROVIDERS: ATTEND Internal Medicine Endocrinology, Diabetes & Metabolism
DX: E89.0 Postprocedural hypothyroidism (principal); R53.83 Other fatigue
CPT/HCPCS: 36415; 82306; 84439; 84443

== ENCOUNTER 2019-03-16 08:35 | Outpatient (CLI) | payer OTHER ==
[2019-03-16 09:04] LABS: BASOPHILS # (AUTO) 0.04 x10^3/uL (0-0.1); BASOPHILS % (AUTO) 1 % (0-1); EOSINOPHILS # (AUTO) 0.07 x10^3/uL (0-0.4); EOSINOPHILS % (AUTO) 1 % (1-7); LYMPHOCYTES # (AUTO) 3.56 x10^3/uL (1-3.4); LYMPHOCYTES % (AUTO) 44 % (22-44); MD NO; MEAN CORPUSCULAR HEMOGLOBIN 33.2 pg (27.0-34.8); MEAN CORPUSCULAR VOLUME 97.9 fL (80-100); MEAN PLATELET VOLUME 8.4 fL (7.4-10.4); MONOCYTES # (AUTO) 0.74 x10^3/uL (0.2-0.8); MONOCYTES % (AUTO) 9 % (2-9); NEUTROPHILS # (AUTO) 3.75 x10^3/uL (1.8-6.8); NEUTROPHILS % (AUTO) 46 % (42-75); PLATELET COUNT 254 x10^3/uL (130-400); RED CELL DISTRIBUTION WIDTH 12.8 % (9.6-15.2)
[2019-03-16 09:29] LABS: ANION GAP 10 mmol/L (5-15); CALCIUM 8.9 mg/dL (8.5-10.1); CHLORIDE 107 mmol/L (98-107)
[2019-03-16 09:37] LABS: ALANINE AMINOTRANSFERASE 48 U/L (12-78); ALKALINE PHOSPHATASE 117 U/L (45-117); BILIRUBIN,TOTAL 0.3 mg/dL (0.2-1.0); CREATININE 0.95 mg/dL (0.55-1.02); FREE T4 (FREE THYROXINE) 1.64 ng/dL (0.76-1.46)
== END 2019-03-16 23:59 | disposition home or self-care (01) ==
LOC: LAB 08:35
PROVIDERS: ATTEND Internal Medicine Endocrinology, Diabetes & Metabolism
DX: E55.9 Vitamin D deficiency, unspecified (principal); E89.0 Postprocedural hypothyroidism; R53.83 Other fatigue
CPT/HCPCS: 36415; 80053; 82306; 84439; 84443; 85025

== ENCOUNTER → 2019-05-11 | Outpatient (CLI) | payer OTHER ==
[2019-05-11 17:24] LABS: ANION GAP 9 mmol/L (5-15); CALCIUM 8.9 mg/dL (8.5-10.1); CHLORIDE 107 mmol/L (98-107)
[2019-05-11 17:30] LABS: FREE T4 (FREE THYROXINE) 1.81 ng/dL (0.76-1.46)
== END | disposition home or self-care (01) ==
LOC: LAB 16:44
PROVIDERS: ATTEND Internal Medicine Endocrinology, Diabetes & Metabolism
DX: E87.6 Hypokalemia (principal); E89.0 Postprocedural hypothyroidism
CPT/HCPCS: 36415; 80048; 84439; 84443

== ENCOUNTER → 2019-07-07 | Outpatient (CLI) | payer OTHER ==
[2019-07-07 15:31] LABS: BASOPHILS # (AUTO) 0.03 x10^3/uL (0-0.1); BASOPHILS % (AUTO) 0 % (0-1); EOSINOPHILS # (AUTO) 0.05 x10^3/uL (0-0.4); EOSINOPHILS % (AUTO) 1 % (1-7); LYMPHOCYTES # (AUTO) 2.13 x10^3/uL (1-3.4); LYMPHOCYTES % (AUTO) 29 % (22-44); MD NO; MEAN CORPUSCULAR HEMOGLOBIN 33.1 pg (27.0-34.8); MEAN CORPUSCULAR HGB CONC 33.7 g/dL (32.4-35.8); MEAN CORPUSCULAR VOLUME 98.2 fL (80-100); MONOCYTES # (AUTO) 0.58 x10^3/uL (0.2-0.8); MONOCYTES % (AUTO) 8 % (2-9); NEUTROPHILS # (AUTO) 4.45 x10^3/uL (1.8-6.8); NEUTROPHILS % (AUTO) 62 % (42-75); PLATELET COUNT 236 x10^3/uL (130-400); RED BLOOD COUNT 4.45 x10^6/uL (3.82-5.3); RED CELL DISTRIBUTION WIDTH 12.9 % (9.6-15.2)
[2019-07-07 15:43] LABS: ALBUMIN 4.1 g/dL (3.4-5.0); ANION GAP 6 mmol/L (5-15); CALCIUM 8.9 mg/dL (8.5-10.1); CHLORIDE 109 mmol/L (98-107)
[2019-07-07 15:48] LABS: ALANINE AMINOTRANSFERASE 50 U/L (12-78); ALKALINE PHOSPHATASE 127 U/L (45-117); BILIRUBIN,TOTAL 0.2 mg/dL (0.2-1.0); C-REACTIVE PROTEIN, QUANT 0.35 mg/dL (0.02-0.49); CHOL/HDL RATIO 6.6; CHOLESTEROL, TOTAL 272 mg/dL (140-239); CREATININE 0.92 mg/dL (0.55-1.02); HDL CHOL % 15 % (28-40); HDL CHOLESTEROL (DIRECT) 41 mg/dL (40-60); LDL CHOLESTEROL,CALCULATED 154 mg/dL (54-169); LDL/HDL RATIO 3.8 (0.5-3.0); TOTAL PROTEIN 8.5 g/dL (6.4-8.2); TRIGLYCERIDES 384 mg/dL (50-200); VLDL CHOLESTEROL 77 mg/dL (0-25)
[2019-07-07 15:57] LABS: FREE T4 (FREE THYROXINE) 1.12 ng/dL (0.76-1.46)
== END | disposition home or self-care (01) ==
LOC: LAB 14:44
PROVIDERS: ATTEND Internal Medicine Endocrinology, Diabetes & Metabolism
DX: E78.2 Mixed hyperlipidemia (principal); M32.10 Systemic lupus erythematosus, organ or system involvement unspecified; M79.605 Pain in left leg; R60.0 Localized edema
CPT/HCPCS: 36415; 80053; 80061; 84439; 84443; 85025; 86038; 86140

== ENCOUNTER 2019-07-22 12:29 | Emergency (ER) | payer OTHER ==
[~2019-07-22] VITALS: Ht 167.6 cm; Wt 75.0 kg
--- NOTE | 2019-07-22 13:27 | NUR ---
FIRST CONTACT WITH PT. PT C/O SLOWED SPEECH AND LOSS OF TASTE YESTERDAY. HX OF STROKE IN 2016. TODAY PT. HAS LEFT FACIAL DROOP. PT. HAS HX OF INTUBATION WITH SEPTIC SHOCK. VISUAL FIELD LOSS ON THE LEFT SIDE. PT.'S SYMPTOMS STARTED YESTERDAY. HX OF LUPUS. PT ALSO C/O SORE THROAT AND COUGH IN THE MORNING. EDMD NOTIFIED AND STATES" NO COVID TEST" AT THIS TIME. PT'S AOX4. RESPS EVEN AND UNLABORED. NEURO/SENSATION INTACT. SPEECH CLEAR IN ROOM. BP/SPO2 MONITORS IN PLACE. CALL LIGHT WITHIN REACH.
[2019-07-22] MEDS ORDERED: SODIUM CHLORIDE FLUSH 10ML SYR IVF ONE (13:30)
--- NOTE | 2019-07-22 13:52 | NUR ---
PT BACK TO ROOM FROM CT AT THIS TIME.
[2019-07-22 13:53] LABS: BASOPHILS # (AUTO) 0.02 x10^3/uL (0-0.1); BASOPHILS % (AUTO) 0 % (0-1); EOSINOPHILS % (AUTO) 1 % (1-7); LYMPHOCYTES # (AUTO) 1.56 x10^3/uL (1-3.4); LYMPHOCYTES % (AUTO) 19 % (22-44); MD NO; MEAN CORPUSCULAR HEMOGLOBIN 33.5 pg (27.0-34.8); MEAN PLATELET VOLUME 9.6 fL (7.4-10.4); MONOCYTES # (AUTO) 0.59 x10^3/uL (0.2-0.8); MONOCYTES % (AUTO) 7 % (2-9); NEUTROPHILS # (AUTO) 5.97 x10^3/uL (1.8-6.8); NEUTROPHILS % (AUTO) 73 % (42-75); PLATELET COUNT 198 x10^3/uL (130-400); RED BLOOD COUNT 4.06 x10^6/uL (3.82-5.3); RED CELL DISTRIBUTION WIDTH 12.5 % (9.6-15.2)
[2019-07-22 14:01] LABS: ALBUMIN 3.6 g/dL (3.4-5.0); ANION GAP 5 mmol/L (5-15); CALCIUM 8.9 mg/dL (8.5-10.1); CHLORIDE 109 mmol/L (98-107)
[2019-07-22 14:13] LABS: ALANINE AMINOTRANSFERASE 28 U/L (12-78); ALKALINE PHOSPHATASE 130 U/L (45-117); BILIRUBIN,TOTAL 0.2 mg/dL (0.2-1.0); CREATININE 0.89 mg/dL (0.55-1.02); TOTAL PROTEIN 7.4 g/dL (6.4-8.2)
--- NOTE | 2019-07-22 14:17 | NUR ---
RUDDY. PT'S AOX4. RESPS EVEN AND UNLABORED. BP/SPO2 MONITORS IN PLACE. CALL LIGHT WITHIN REACH. RAILS UP X2.
[2019-07-22 15:42] LABS: INTERNATIONAL NORMALIZED RATIO 0.94 (0.93-1.1)
[2019-07-22] MEDS ORDERED: ASPIRIN 81 MG TABLET CHEW ONE (16:14)
[2019-07-22] MEDS ORDERED: LEVO175T2 PO (16:17)
[2019-07-22] MEDS ORDERED: CELE50CA PO (16:18)
[2019-07-22] MEDS ORDERED: OXYC-306 PO (16:19)
[2019-07-22] MEDS ORDERED: IBUP-1223 PO (16:19)
[2019-07-22] MEDS ORDERED: LORA-446 PO (16:20)
[2019-07-22] MEDS ORDERED: TIZA2CAP2 PO (16:20)
--- NOTE | 2019-07-22 16:29 | NUR ---
PT MEDICATED PER EMAR. PT TOLERATED WELL. PIV EST WITH NO COMPLICATIONS.
[2019-07-22] MEDS ORDERED: ASPIRIN 81 MG TABLET CHEW PO ONE (16:30)
--- NOTE | 2019-07-22 17:19 | NUR ---
NEUROLOGIST(WEBCAM) IN ROOM TO EVALUATE AT THIS TIME.
[2019-07-22] MEDS ORDERED: DIPHENHYDRAMINE 50 MG/ML, 1ML IV STA (17:24)
[2019-07-22] MEDS ORDERED: PROCHLORPERAZINE 5 MG/ML, 2ML IV STA (17:24)
[2019-07-22] MEDS ORDERED: DEXAMETHASONE 4 MG/ML, 1ML IVPush STA (17:24)
[2019-07-22] MEDS ORDERED: PROCHLORPERAZINE 5 MG/ML, 2ML ONE (17:40)
[2019-07-22] MEDS ORDERED: DEXAMETHASONE 4 MG/ML, 1ML ONE (17:41)
[2019-07-22] MEDS ORDERED: DIPHENHYDRAMINE 50 MG/ML, 1ML ONE (17:41)
[2019-07-22 17:59] VITALS: BP 129/76
[2019-07-22] MEDS ORDERED: OXYcodone/APAP 7.5/325MG TABLET PO PRN (18:00)
[2019-07-22] MEDS ORDERED: hydrOXyzine 10MG TABLET PO PRN (18:00)
[2019-07-22] MEDS ORDERED: ONDANSETRON 2MG/ML, 2ML IVPush PRN (18:00)
[2019-07-22] MEDS ORDERED: ENOXAPARIN 40 MG/0.4 ML SQ SCH (18:00)
[2019-07-22] MEDS ORDERED: ONDANSETRON ODT 4 MG PO PRN (18:00)
[2019-07-22] MEDS ORDERED: ACETAMINOPHEN 325 MG TABLET PO PRN (18:00)
--- NOTE | 2019-07-22 18:00 | NUR ---
PT MEDICATED PER EMAR. PT TOLERATED WELL. PT'S AOX4. RESPS EVEN AND UNLABORED.
--- NOTE | 2019-07-22 18:25 | NUR ---
pt in ct at this time.
--- NOTE | 2019-07-22 18:37 | NUR ---
pt back to room from ct at this time. pt's iv is infiltrated at ct. pt needs new piv for cta.
--- NOTE | 2019-07-22 18:42 | NUR ---
pt removed piv by herself and states"it hurts. i wanna leave. please take off everything now."
--- NOTE | 2019-07-22 18:52 | NUR ---
pt states"i can't stay here anymore. i don't have covid. i'm leaving now." pt signed on ama paper and amb to dc with steady gait. pt's aox4. resps even and unlabored. edmd notified.
[2019-07-22] MEDS ORDERED: ATORVASTATIN 40 MG TABLET PO SCH (21:00)
[2019-07-23] MEDS ORDERED: LEVOTHYROXINE 175 MCG TABLET PO SCH (06:00)
[2019-07-23] MEDS ORDERED: TIZANIDINE 2MG TABLET PO SCH (09:00)
[2019-07-23] MEDS ORDERED: IBUPROFEN 800 MG TABLET PO SCH (09:00)
[2019-07-23] MEDS ORDERED: CLOPIDOGREL 75 MG TABLET PO SCH (09:00)
[2019-07-23] MEDS ORDERED: OXYcodone/APAP 7.5/325MG TABLET PO SCH (09:00)
== END 2019-07-22 18:54 | disposition left against medical advice (07) ==
LOC: ED 14:01
DX: G45.8 Other transient cerebral ischemic attacks and related syndromes (principal); G46.0 Middle cerebral artery syndrome; I10 Essential (primary) hypertension; R00.0 Tachycardia, unspecified; Z90.49 Acquired absence of other specified parts of digestive tract; Z88.6 Allergy status to analgesic agent; Z88.8 Allergy status to other drugs, medicaments and biological substances; Z90.89 Acquired absence of other organs
CPT/HCPCS: 36415; 70450; 80053; 84439; 84443; 85025; 85610; 85651; 85730; 93005; 96374; 96375; 99285; J0780; J1100; J1200

== ENCOUNTER → 2019-09-03 | Outpatient (CLI) | payer OTHER ==
[~2019-09-03] MED LIST changes: +CELE50CA PO; +IBUP-1223 PO; +LORA-446 PO; +TIZA2CAP2 PO
[2019-09-03 08:33] LABS: BASOPHILS # (AUTO) 0.03 x10^3/uL (0-0.1); BASOPHILS % (AUTO) 1 % (0-1); EOSINOPHILS # (AUTO) 0.08 x10^3/uL (0-0.4); EOSINOPHILS % (AUTO) 2 % (1-7); LYMPHOCYTES # (AUTO) 1.98 x10^3/uL (1-3.4); LYMPHOCYTES % (AUTO) 39 % (22-44); MD NO; MEAN CORPUSCULAR HEMOGLOBIN 33.4 pg (27.0-34.8); MEAN CORPUSCULAR HGB CONC 33.9 g/dL (32.4-35.8); MEAN CORPUSCULAR VOLUME 98.5 fL (80-100); MEAN PLATELET VOLUME 8.9 fL (7.4-10.4); MONOCYTES % (AUTO) 10 % (2-9); NEUTROPHILS % (AUTO) 49 % (42-75); PLATELET COUNT 191 x10^3/uL (130-400); RED BLOOD COUNT 4.11 x10^6/uL (3.82-5.3); RED CELL DISTRIBUTION WIDTH 12.5 % (9.6-15.2)
[2019-09-03 08:39] LABS: MICROSCOPIC INDICATED
[2019-09-03 08:42] LABS: ALBUMIN 3.7 g/dL (3.4-5.0); ANION GAP 5 mmol/L (5-15); CHLORIDE 108 mmol/L (98-107)
[2019-09-03 08:51] LABS: ALANINE AMINOTRANSFERASE 52 U/L (12-78); ALKALINE PHOSPHATASE 142 U/L (45-117); BILIRUBIN,TOTAL 0.2 mg/dL (0.2-1.0); CHOL/HDL RATIO 11.1; CHOLESTEROL, TOTAL 266 mg/dL (140-239); CREATININE 0.93 mg/dL (0.55-1.02); HDL CHOL % 9 % (28-40); HDL CHOLESTEROL (DIRECT) 24 mg/dL (40-60); TOTAL PROTEIN 7.7 g/dL (6.4-8.2); TRIGLYCERIDES 852 mg/dL (50-200)
== END | disposition home or self-care (01) ==
LOC: LAB 07:29
PROVIDERS: ATTEND Family Medicine
DX: Z00.00 Encounter for general adult medical examination without abnormal findings (principal); Z79.899 Other long term (current) drug therapy
CPT/HCPCS: 36415; 80053; 80061; 81001; 82306; 83036; 84443; 85025; 87086

== ENCOUNTER → 2019-11-17 | Outpatient (CLI) | payer OTHER | END | disposition home or self-care (01) | LOC: RAD 11:44 | PROVIDERS: ATTEND Family Medicine | DX: R94.5 Abnormal results of liver function studies (principal) | CPT/HCPCS: 76705 ==

== ENCOUNTER → 2019-11-17 | Outpatient (CLI) | payer OTHER ==
[2019-11-17 11:13] LABS: ALBUMIN 4.3 g/dL (3.4-5.0); ANION GAP 7 mmol/L (5-15); CALCIUM 9.7 mg/dL (8.5-10.1); CHLORIDE 107 mmol/L (98-107)
[2019-11-17 11:17] LABS: ALANINE AMINOTRANSFERASE 65 U/L (12-78); ALKALINE PHOSPHATASE 173 U/L (45-117); BILIRUBIN,TOTAL 0.5 mg/dL (0.2-1.0); CHOL/HDL RATIO 3.4; CHOLESTEROL, TOTAL 166 mg/dL (140-239); CREATININE 0.79 mg/dL (0.55-1.02); HDL CHOL % 30 % (28-40); HDL CHOLESTEROL (DIRECT) 49 mg/dL (40-60); LDL CHOLESTEROL,CALCULATED 91 mg/dL (54-169); LDL/HDL RATIO 1.9 (0.5-3.0); TRIGLYCERIDES 130 mg/dL (50-200); VLDL CHOLESTEROL 26 mg/dL (0-25)
== END | disposition home or self-care (01) ==
LOC: LAB 10:43
PROVIDERS: ATTEND Family Medicine
DX: R79.9 Abnormal finding of blood chemistry, unspecified (principal); E78.5 Hyperlipidemia, unspecified
CPT/HCPCS: 36415; 80053; 80061

== ENCOUNTER 2019-11-18 10:41 | Emergency (ER) | payer OTHER ==
[~2019-11-18] VITALS: Ht 167.6 cm; Wt 70.2 kg
[2019-11-18 11:24] LABS: BASOPHILS # (AUTO) 0.02 x10^3/uL (0-0.1); BASOPHILS % (AUTO) 0 % (0-1); EOSINOPHILS % (AUTO) 0 % (1-7); LYMPHOCYTES # (AUTO) 1.65 x10^3/uL (1-3.4); LYMPHOCYTES % (AUTO) 19 % (22-44); MD NO; MEAN CORPUSCULAR HEMOGLOBIN 32.7 pg (27.0-34.8); MEAN CORPUSCULAR VOLUME 98.9 fL (80-100); MEAN PLATELET VOLUME 8.4 fL (7.4-10.4); MONOCYTES # (AUTO) 0.44 x10^3/uL (0.2-0.8); MONOCYTES % (AUTO) 5 % (2-9); NEUTROPHILS # (AUTO) 6.58 x10^3/uL (1.8-6.8); NEUTROPHILS % (AUTO) 76 % (42-75); PLATELET COUNT 256 x10^3/uL (130-400); RED BLOOD COUNT 4.65 x10^6/uL (3.82-5.3); RED CELL DISTRIBUTION WIDTH 12.7 % (9.6-15.2)
[2019-11-18 11:40] LABS: ALANINE AMINOTRANSFERASE 54 U/L (12-78); ALBUMIN 4.4 g/dL (3.4-5.0); ANION GAP 7 mmol/L (5-15); CALCIUM 9.8 mg/dL (8.5-10.1); CHLORIDE 109 mmol/L (98-107); CREATININE 0.82 mg/dL (0.55-1.02)
--- NOTE | 2019-11-18 11:41 | NUR ---
walked to room. as
[2019-11-18 11:44] LABS: ALKALINE PHOSPHATASE 163 U/L (45-117); BILIRUBIN,TOTAL 0.4 mg/dL (0.2-1.0); TOTAL PROTEIN 9.3 g/dL (6.4-8.2)
[2019-11-18 12:17] LABS: MICROSCOPIC INDICATED
--- NOTE | 2019-11-18 12:26 | NUR ---
pt c/o n/v/d x1 wk "i haven't eaten in 7 days" had US yest and was told to go to ed bc elev LFTs was in hosp w/ pancolitis/sepsis last year and anxious that she is getting same symptoms. call salmon/vss/awaiting results. as
--- NOTE | 2019-11-18 13:01 | NUR ---
c/o feeling hot afebrile. awaiting culture results. call salmon. as
[2019-11-18] MEDS ORDERED: HYDROmorphone 1 MG/ML, 1ML INJ ONE (14:23)
[2019-11-18] MEDS ORDERED: ONDANSETRON 2MG/ML, 2ML ONE (14:23)
[2019-11-18] MEDS ORDERED: HYDROmorphone 2 MG/ML, 1ML IVPush PRN (14:30)
--- NOTE | 2019-11-18 14:38 | NUR ---
REPORT FROM YONATAN BAKER. PT CARE RESPONSIBLITIES ASSUMED.
--- NOTE | 2019-11-18 14:51 | NUR ---
us piv est meds per may pt to ct report to tony mancini. as
[2019-11-18] MEDS ORDERED: ONDANSETRON 2MG/ML, 2ML IVPush ONE (15:00)
[2019-11-18] MEDS ORDERED: SODIUM CHLORIDE 0.9% 1,000ML IVBOLUS ONE (15:00)
[2019-11-18] MEDS ORDERED: SODIUM CHLORIDE FLUSH 10ML SYR IVF ONE (15:00)
[2019-11-18] MEDS ORDERED: OMNIPAQUE 350 MG/ML, 100ML BOTTLE ONE (15:10)
[2019-11-18] MEDS ORDERED: MAALOX/HYOSCYAMINE/LIDOCAINE 45 ML BTL PO ONE (16:00)
[2019-11-18] MEDS ORDERED: MAALOX/HYOSCYAMINE/LIDOCAINE 45 ML BTL ONE (16:12)
[2019-11-18 16:59] VITALS: BP 132/74
== END 2019-11-18 17:02 | disposition home or self-care (01) ==
LOC: ED 13:06
DX: K29.00 Acute gastritis without bleeding (principal); R10.84 Generalized abdominal pain; R10.31 Right lower quadrant pain; R11.2 Nausea with vomiting, unspecified; I10 Essential (primary) hypertension; E89.0 Postprocedural hypothyroidism; Z86.73 Personal history of transient ischemic attack (TIA), and cerebral infarction without residual deficits
CPT/HCPCS: 36415; 74177; 80053; 81001; 83690; 84703; 85025; 87086; 93005; 96361; 96374; 96375; 99285; J1170; J2405; J7030; Q9967

== ENCOUNTER 2020-04-22 11:41 | Emergency (ER) | payer OTHER ==
[~2020-04-22] VITALS: Ht 167.6 cm; Wt 75.6 kg
[~2020-04-22 11:41] MED LIST changes: -CIPR500T3 PO; +CIPR500T4 PO; -OXYC-302 PO; -OXYC-306 PO; +OXYC1TAB14 PO; +OXYC1TAB17 PO
--- NOTE | 2020-04-22 12:19 | NUR ---
AT BEDSIDE FOR ASSESSMENT.
[2020-04-22] MEDS ORDERED: SODIUM CHLORIDE FLUSH 10ML SYR IVF ONE (12:30)
[2020-04-22] MEDS ORDERED: METHOCARBAMOL 750 MG TABLET PO ONE (12:30)
[2020-04-22] MEDS ORDERED: ONDANSETRON 2MG/ML, 2ML IVPush ONE (12:30)
[2020-04-22] MEDS ORDERED: METHOCARBAMOL 750 MG TABLET ONE (13:04)
[2020-04-22] MEDS ORDERED: HYDROmorphone 1 MG/ML, 1ML INJ ONE ×3 (13:05→14:48)
[2020-04-22] MEDS ORDERED: ONDANSETRON 2MG/ML, 2ML ONE (13:05)
[2020-04-22] MEDS ORDERED: LORazepam 2 MG/ML, 1ML ONE ×2 (13:10→13:52)
[2020-04-22] MEDS: HYDROmorphone 2 MG/ML, 1ML IVPush PRN ×2 (13:14→13:25)
--- NOTE | 2020-04-22 13:26 | NUR ---
PIV PLACED BY TASK RN VIA . MD STATES LABS ARE NOT NEEDED. PT C/O SEVERE CLAUSTRAPHOBIA. MEDS ADMIN PER MAY. PT CONNECTED TO MONITORING.
[2020-04-22] MEDS ORDERED: LORazepam 2 MG/ML, 1ML IVPush ONE (13:30)
[2020-04-22] MEDS ORDERED: GADOTERATE 7.5 MMOL/15 ML SYR ONE (13:30)
--- NOTE | 2020-04-22 13:41 | NUR ---
PT AT MRI
--- NOTE | 2020-04-22 13:55 | NUR ---
MRI CALLED ABOUT PT BEING ANXIOUS. NOTIFIED. PARTS ROOM CLERK PER MAR IN MRI.
[2020-04-22] MEDS ORDERED: LORazepam 2 MG/ML, 1ML IV ONE (14:00)
--- NOTE | 2020-04-22 14:17 | NUR ---
PT BACK FROM MRI.
[2020-04-22 14:40] VITALS: BP 127/89
--- NOTE | 2020-04-22 14:42 | NUR ---
ALL RESULTS ARE BACK AT THIS TIME. CHART UP FOR RECHECK.
[2020-04-22] MEDS ORDERED: HYDROmorphone 2 MG/ML, 1ML IVPush ONE (15:00)
--- NOTE | 2020-04-22 15:34 | NUR ---
Report from YONATAN Silva. Assumed care.
== END 2020-04-22 15:36 | disposition home or self-care (01) ==
LOC: ED 14:51
DX: S16.1XXA Strain of muscle, fascia and tendon at neck level, initial encounter (principal); I10 Essential (primary) hypertension; Z90.49 Acquired absence of other specified parts of digestive tract; Z86.73 Personal history of transient ischemic attack (TIA), and cerebral infarction without residual deficits; X58.XXXA Exposure to other specified factors, initial encounter; Y93.89 Activity, other specified; Y92.89 Other specified places as the place of occurrence of the external cause; Y99.8 Other external cause status
CPT/HCPCS: 72156; 96374; 96375; 96376; 99285; A9575; J1170; J2060; J2405

== ENCOUNTER → 2020-05-23 | Outpatient (CLI) | payer OTHER ==
[2020-05-23 10:15] LABS: BASOPHILS % (AUTO) 1 % (0-1); EOSINOPHILS % (AUTO) 1 % (1-7); LYMPHOCYTES % (AUTO) 34 % (22-44); MEAN CORPUSCULAR HEMOGLOBIN 33.3 pg (27.0-34.8); MEAN CORPUSCULAR HGB CONC 34.5 g/dL (32.4-35.8); MEAN PLATELET VOLUME 8.2 fL (7.4-10.4); MONOCYTES % (AUTO) 8 % (2-9); NEUTROPHILS % (AUTO) 57 % (42-75); PLATELET COUNT 219 x10^3/uL (130-400); RED BLOOD COUNT 4.49 x10^6/uL (3.82-5.3); RED CELL DISTRIBUTION WIDTH 12.6 % (9.6-15.2)
[2020-05-23 10:16] LABS: MD NO
[2020-05-23 10:27] LABS: ALBUMIN 4.1 g/dL (3.4-5.0); ANION GAP 7 mmol/L (5-15); CALCIUM 9.1 mg/dL (8.5-10.1); CHLORIDE 107 mmol/L (98-107)
[2020-05-23 10:38] LABS: ALANINE AMINOTRANSFERASE 46 U/L (12-78); ALKALINE PHOSPHATASE 146 U/L (45-117); BILIRUBIN,TOTAL 0.4 mg/dL (0.2-1.0); CHOL/HDL RATIO 4.8; CHOLESTEROL, TOTAL 269 mg/dL (140-239); CREATINE KINASE, TOTAL 99 U/L (26-192); CREATININE 0.91 mg/dL (0.55-1.02); HDL CHOL % 21 % (28-40); HDL CHOLESTEROL (DIRECT) 56 mg/dL (40-60); LDL CHOLESTEROL,CALCULATED 155 mg/dL (54-169); LDL/HDL RATIO 2.8 (0.5-3.0); TOTAL PROTEIN 8.3 g/dL (6.4-8.2); TRIGLYCERIDES 290 mg/dL (50-200); VLDL CHOLESTEROL 58 mg/dL (0-25)
== END | disposition home or self-care (01) ==
LOC: RAD 09:39
PROVIDERS: ATTEND Family Medicine
DX: Z00.00 Encounter for general adult medical examination without abnormal findings (principal); M47.812 Spondylosis without myelopathy or radiculopathy, cervical region
CPT/HCPCS: 36415; 72050; 80053; 80061; 82550; 84443; 85025; 86141

== ENCOUNTER 2020-09-27 07:07 | Outpatient (CLI) | payer OTHER ==
[~2020-09-27] VITALS: Ht 167.6 cm; Wt 74.9 kg
[2020-09-27] MEDS ORDERED: SODIUM CHLORIDE 0.9% 1,000 ML IV SCH (08:00)
[2020-09-27 08:05] VITALS: BP 128/87
[2020-09-27] MEDS ORDERED: FENTANYL PF 100 MCG/2ML ONE (09:40)
[2020-09-27] MEDS ORDERED: MIDAZOLAM 1 MG/ML, 5ML ONE (09:40)
[2020-09-27] MEDS ORDERED: ACETAMINOPHEN 325 MG TABLET PO ONE (11:00)
[2020-09-27] MEDS ORDERED: ACETAMINOPHEN 325 MG TABLET ONE (11:01)
== END 2020-09-27 11:20 | disposition home or self-care (01) ==
LOC: RAD 07:07
PROVIDERS: ATTEND Physician Assistant Surgical
DX: M25.512 Pain in left shoulder (principal); M50.323 Other cervical disc degeneration at C6-C7 level; F32.9 Major depressive disorder, single episode, unspecified; F41.9 Anxiety disorder, unspecified; E78.5 Hyperlipidemia, unspecified; G25.81 Restless legs syndrome; E07.9 Disorder of thyroid, unspecified; Z79.02 Long term (current) use of antithrombotics/antiplatelets; Z79.890 Hormone replacement therapy; Z79.891 Long term (current) use of opiate analgesic; Z79.899 Other long term (current) drug therapy; Z88.8 Allergy status to other drugs, medicaments and biological substances; Z98.1 Arthrodesis status
CPT/HCPCS: 73221; 99156; 99157; J2250; J3010; J7030